=== PATIENT | male | born 1975 | race American Indian/Alaskan Native ===

== ENCOUNTER 2019-10-20 07:02 | Day surgery (SDC) | payer OTHER ==
[2019-10-20] MEDS ORDERED: ASPIRIN EC 325 MG TAB PO ONE (07:31)
[2019-10-20] MEDS: SODIUM CHLORIDE 0.9% 500 ML 500 ML IV SCH ×2 (07:53→09:16)
[2019-10-20 07:54] LABS: Basophils % (Auto) 0.4 % (0.0-1.8); Eosinophils # (Auto) 0.2 K/mm3 (0.0-0.4); Hematocrit 44.3 % (35.5-45.6); Hemoglobin 14.7 gm/dl (11.8-15.2); Lymphocytes # (Auto) 1.1 K/mm3 (1.2-5.4); Lymphocytes % (Auto) 27.6 % (13.4-35.0); Mean Corpuscular HGB Conc 33 % (32-34); Mean Corpuscular Volume 90 fl (84-94); Monocytes # (Auto) 0.5 K/mm3 (0.0-0.8); Monocytes % (Auto) 12.2 % (0.0-7.3); Platelet Count 169 K/mm3 (140-440); Red Blood Count 4.94 M/mm3 (3.65-5.03); Red Cell Distribution Width 13.5 % (13.2-15.2)
[2019-10-20 08:08] LABS: INR 1.07 (0.87-1.13)
[2019-10-20 08:27] LABS: BUN/Creatinine Ratio 11; Blood Urea Nitrogen 16 mg/dL (9-20); Calcium 9.5 mg/dL (8.4-10.2); Hemolysis Index 6
[2019-10-20] MEDS ORDERED: HEPARIN/NS 5000 UNIT/500ML 1,000 ML IR ONE (08:32)
[2019-10-20] MEDS ORDERED: HEPARIN 10,000 UNITS/10 ML VIAL ONE (08:32)
--- NOTE | 2019-10-20 08:52 | History and Physical Report ---
History of Present Illness Date of examination: 10/20/19 Date of admission: 10/20/2019 Chief complaint: no current complaints History of present illness: Pt followed in our office by Dr. Medley. At his last visit in May 2019, he had presented with recurrent chest pain which has been going on since 2016 when he had an abnormal stress test. He also had an abnormal ECG. He had also complained of palpitations in the past and was documented to have sinus bradyc ardia including marked sinus bradycardia with occasional asymptomatic pauses. He was scheduled for coronary angiography and echocardiogram. However, none of the procedures have been performed. He claims that he canceled the cause he wanted to find out about the cath cost. Meanwhile, he still experiences intermittent chest pain as well as palpitations. He presents today for scheduled elective LHC. Past History Past Medical History: other (as per HPI) Medications and Allergies Allergies Allergy/AdvReac Type Severity Reaction Status Date / Time silver AdvReac Rash Verified 10/20/19 07:31 Active Meds: Active Medications Sodium Chloride (Nacl 0.9% 500 Ml) 500 mls @ 50 mls/hr IV DIRECT CHRISTY Stop: 10/20/19 17:59 Last Admin: 10/20/19 07:53 Dose: 50 mls/hr Documented by: Review of Systems All systems: negative (no current complaints) Physical Examination Vital Signs Temp Pulse Resp BP Pulse Ox 97.3 F L 51 L 20 117/61 100 10/20/19 07:54 10/20/19 07:54 10/20/19 07:54 10/20/19 07:54 10/20/19 07:54 General appearance: no acute distress HEENT: Positive: PERRL Neck: Positive: neck supple, trachea midline Cardiac: Positive: Reg Rate and Rhythm, S1/S2 Lungs: Positive: clear to auscultation Neuro: Positive: Grossly Intact Abdomen: Negative: Tender Skin: Negative: Rash Musculoskeletal: No Pain Extremities: Absent: edema Results 10/20/19 07:47 10/20/19 07:47 Coagulation 10/20/19 10/20/19 Range/Units 07:47 07:47 PT 14.0 (12.2-14.9) Sec. INR 1.07 (0.87-1.13) APTT 28.0 (24.2-36.6) Sec. CBC 10/20/19 Range/Units 07:47 WBC 4.1 L (4.5-11.0) K/mm3 RBC 4.94 (3.65-5.03) M/mm3 Hgb 14.7 (11.8-15.2) gm/dl Hct 44.3 (35.5-45.6) % Plt Count 169 (140-440) K/mm3 Lymph # 1.1 L (1.2-5.4) K/mm3 [place] # 0.5 (0.0-0.8) K/mm3 Eos # 0.2 (0.0-0.4) K/mm3 Baso # 0.0 (0.0-0.1) K/mm3 Comprehensive Metabolic Panel 10/20/19 Range/Units 07:47 Sodium 143 (137-145) mmol/L Potassium 4.4 (3.6-5.0) mmol/L Chloride 103.5 (98-107) mmol/L Carbon Dioxide 30 (22-30) mmol/L BUN 16 (9-20) mg/dL Creatinine 1.4 (0.8-1.5) mg/dL Glucose 99 (75-100) mg/dL Calcium 9.5 (8.4-10.2) mg/dL Assessment and Plan Proceed with scheduled elective LHC. Await findings. The patient has been seen in conjunction with Dr. Ashford who agrees with the assessment and plan of care. - Patient Problems (1) Recurrent chest pain Current Visit: Yes Status: Chronic (2) Palpitations Current Visit: Yes Status: Chronic (3) Abnormal stress test Current Visit: Yes Status: Chronic
[2019-10-20] MEDS: MIDAZOLAM 2 MG/2 ML INJ ONE ×2 (09:15→09:33)
[2019-10-20] MEDS: fentaNYL 100 MCG/2 ML INJ ONE ×2 (09:15→09:33)
[2019-10-20] MEDS: LIDOCAINE (2%) 20 MG/1 ML VIAL 20 ML MDV INFILTRATI ONE ×2 (09:16→09:40)
[2019-10-20] MEDS: VERAPAMIL 5 MG/2 ML INJ ONE ×2 (09:16→09:41)
--- NOTE | 2019-10-20 10:13 | Cardiac Catherization Report ---
INDICATION FOR PROCEDURE: A 44-year-old -[place] gentleman was evaluated by Dr. Medley in the office on 09/14/2019. He was having intermittent chest pain, he has underlying sinus bradycardia and history of palpitations. Because of recurrent chest pains, the patient is scheduled for cardiac catheterization for definitive diagnosis and treatment. He was noted to have abnormal stress test in the past. The patient is aware of the procedure, potential complications and alternatives of therapy available. DESCRIPTION OF PROCEDURE: The patient was brought to the catheterization laboratory in a fasting condition. The patient was evaluated for moderate sedation and was felt to be appropriate candidate for moderate sedation. The patient's moderate sedation started at 9:06 a.m. Subsequently, the patient was prepared in standard fashion. Local anesthesia was given in the right wrist area and right radial artery puncture was made using 21-gauge arterial puncture needle. Subsequently, 5-Cambodian slender sheath was introduced. A 5-Cambodian multipurpose catheter was used to obtain angiograms of the left ventricle done in ROMAN projection and angiograms of the right coronary artery. Subsequently, TIG catheter was used to obtain the angiograms of the left coronary artery in multiple views. At the end of the procedure, catheter and sheath were removed. Good hemostasis was achieved with application of radial band. The patient was sedated with IV Versed starting at 9:32 a.m. He was continuously monitored with EKG monitoring, pulse oximetry, and hemodynamic monitoring and moderate sedation monitoring ended at 9:51 a.m. The patient at the end of the procedure is communicating normally without any focal deficits and breathing normally. The patient was transferred to the room in stable condition. No untoward complications were noted. The patient received 5 mg of intra-arterial verapamil and 3000 units of intravenous heparin. Throughout the procedure, the patient is showing sinus bradycardia. Following findings were noted. HEMODYNAMICS: 1. Opening aortic pressure 131/85, left ventricular pressure 126/16. No gradient across the aortic valve. Estimated ejection fraction 55-60%. 2. Left ventriculogram done in ROMAN projection showed normal sized left ventricle with normal contractility. End-diastolic and systolic volumes are normal. Mitral regurgitation could not be evaluated because of limited amount of dye injected. 3. Right coronary artery codominant artery arises somewhat anteriorly in the anterior cusp area. This is codominant vessel. Angiographically appears to be smooth and normal. 4. Left coronary artery arises normally from left coronary cusps are slightly higher. Left main is short, smooth and normal. Similarly, LAD, which curves around the apex and its branch are angiographically smooth and normal. Circumflex artery and its branch are angiographically smooth and normal. FINAL IMPRESSION: Normal sized left ventricle with normal contractility. Ejection fraction was felt to be 55-60%. Codominant RCA, which is arising somewhat anteriorly, but angiographically smooth and normal, similarly left coronary arteries angiographically normal. Considering the above angiographic pictures, it was felt the patient's chest pains are most likely nonischemic in nature. I encouraged him to continue risk factor modification including exercise program. At this time, etiology of his chest pain is not clear. Findings were explained to the patient in detail. JOB# [id number] TRACEY/BENNIE AQUINO
--- NOTE | 2019-10-20 11:25 | Short Stay Summary ---
Short Stay Documentation Date of service: 10/20/19 - History H&P: obtained from office Past Medical History: other (as per HPI) - Allergies and Medications Current Medications: Allergies silver Adverse Reaction (Verified 10/20/19 07:31) Rash Active Medications Sodium Chloride (Nacl 0.9% 500 Ml) 500 mls @ 50 mls/hr IV DIRECT CHRISTY Stop: 10/20/19 17:59 Last Admin: 10/20/19 09:16 Dose: 50 mls/hr Documented by: - Brief post op/procedure progress note Date of procedure: 10/20/19 Pre-op diagnosis: cp; abnormal stress test Post-op diagnosis: other (normal coronaries) Procedure: C - see dictated cath report Anesthesia: local Estimated blood loss: none Condition: stable - Disposition Condition at discharge: Good Disposition: [id number] TO HOME OR SELFCARE - Discharge Diagnoses (1) Recurrent chest pain Status: Chronic (2) Palpitations Status: Chronic (3) Abnormal stress test Status: Chronic Short Stay Discharge Plan Activity: advance as tolerated Diet: low salt Wound: open to air, keep clean and dry, per your surgeon's advice Follow up with: YOAN BENSON MD [Staff Physician] - 7 Days
[2019-10-20 12:56] VITALS: BP 128/85
== END 2019-10-20 12:35 | disposition home or self-care (01) ==
LOC: CATHLABREC 07:02
PROVIDERS: ATTEND Internal Medicine
DX: R07.89 Other chest pain (principal); R94.39 Abnormal result of other cardiovascular function study; R00.2 Palpitations; J45.909 Unspecified asthma, uncomplicated; Z88.8 Allergy status to other drugs, medicaments and biological substances
CPT/HCPCS: 36415; 80048; 85025; 85610; 85730; 93005; 93458; 99156; 99157; C1887; C1894; J1644; J2250; J3010; J7040; Q9967